=== PATIENT | male | born 1960 | race Caucasian/White ===

== ENCOUNTER → 2018-08-14 18:44 | Emergency (ER) | payer BC ==
--- OUTSIDE RECORDS SUMMARY | 2018-08-14 18:57 | XMS REPORT ---
:1960 External Reference #:[id number] Author Organization [employer] Address [address] [place] [address] [place] [address] Phone [phone] Care Team Providers Name Role Phone So Mireles MD Primary Care Physician Unavailable Payers Type Date Identification Numbers Payment Provider Subscriber Commercial Policy Number: [id number] [facility] Howie Yadav PayID: [id number] [address] [place] [address] Problems Date Description Provider Status Onset: 06/27/2010 Psoriasis So Mireles M.D. 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 [employer] ETOH Use Denies alcohol use Smoking Patient has never smoked Allergies, Adverse Reactions, Alerts Date Description Reaction Status Severity Comments 06/23/2010 No Known Drug Allergy active Medications Medication Date Status Form Strength Qnty SIG Indications Ordering Provider Lexapro 06/07 Active Tablets 20mg 2 tablets once daily Jarred Mireles Wellbutrin XL 00 Active Tablets ER 150mg 1 tablet Unknown /0000 24HR daily Flovent HFA 09/11 Hx Aerosol 44mcg/Act 1unit 2 puffs 786.2 [place] /2011 s twice daily Chemo Pratt for 10 days M.DRonen, FACP 07/24 Benzonatate 09/11 Hx Capsules 200mg 30cap take 1 786.2 [place]annah s capsule by Santa, - mouth three M.D., FACP 07/24 times a day Ranitidine HCL 08/15 Hx Tablets 150mg 60tab 1 by mouth 530.81 So s twice daily Cotton, - M.D. 09/11 Fluticasone 08/28 Hx Suspension 50mcg/Act 48uni Use 2 Sprays [place] Propionate ts In Each Santa, - Nostril M.D., FACP 07/24 Daily Needed Vivotif Violeta 06/[address] 4caps one po qod V65.49 [place]annah for 4 doses Santa, - M.D., FACP 11/13 Malarone 06/22 Hx Tablets 250-100mg 25tab one po daily V65.49 s starting 1 - Santa, - 2 days M.D., FACP 11/13 arriving and continue for 7 days after leaving destination Ciprofloxacin 06/22 Hx Tablets 250mg 14tab one po bid V65.49 [place] s for 7 days Santa, - M.D., FACP 11/13 Veramyst 08/11 Hx Suspension 27.5mcg/S 3mont 2 sprays pray h each nostril Cotton, - daily M.D. 08/28 Fluticasone 06/27 Hx Suspension 50mcg/Act 16gm 2 intranasal 696.1 So puffs qd Cotton, - M.D. 08/11 Veramyst 06/07 Hx Suspension 27.5mcg/S 1mon 2 sprays 696.1 So pray each nostril Cotton, - daily M.D. 06/27 Simvastatin 06/07 Hx Tablets 40mg 90tab Take 1 s Tablet By Cotton, - Mouth AT M.D. 11/13 Bedtime Singulair 06/07 Hx Tablets 10mg 90tab Take 1 So s Tablet By Cotton, - Mouth Once M.D. 07/24 Astelin Hx Solution 137mcg/Sp 90uni [facility] Two So / ray ts Sprays In Cotton, - The Affected M.D. 09/11 Nostril /2011 Twice A Day Clobetasol 00 Hx Gel 0.05% 30uni Apply Two So Propionate /0000 ts Times A Day Cotton, - as Needed M.D. 07/24 Medications Administered in Office Medication Date Status Form Strength Qnty SIG Indications Ordering Provider Frederick Administered Injection Sharon 40MG Chad Osman M.D. Immunizations CPT Code Status Date Vaccine Lot # [id number] Given 06/22/2011 Hepatitis B Vaccine Adult Dosage [id number] 84294 Given 06/22/2011 Influenza Virus 3Yrs & Over [id number] 44481 Given 06/22/2011 Hepatitis A Vaccine Adult Dosage [id number] 12014 Given 06/27/2010 Influenza Virus 3Yrs & Over 12810 Given 08/10/2009 Pneumonia Vaccine [id number] Given 08/10/2009 Influenza Virus 3Yrs & Over 66239 Given 07/23/2008 Influenza Virus 3Yrs & Over 14553 Given 07/23/2008 Influenza Virus 3Yrs & Over Vital Signs Date Vital Result Comment 07/25/2018 Height 69 inches 5'9" Weight 179.00 lb BP Systolic 130 mmHg BP Diastolic 82 mmHg Respiratory Rate 16 /min Body Temperature 95.4 F Pain Level 3 BMI (Body Mass Index) 26.4 kg/m2 09/11/2012 Height 69.25 inches 5'9.25" Weight 184.00 lb Heart Rate 72 /min BP Systolic Sitting 124 mmHg BP Diastolic Sitting 76 mmHg Body Temperature 98.5 F BMI (Body Mass Index) 27.0 kg/m2 08/15/2012 Height 69.25 inches 5'9.25" Weight 185.00 lb Heart Rate 70 /min BP Systolic Sitting 128 mmHg BP Diastolic Sitting 76 mmHg BMI (Body Mass Index) 27.1 kg/m2 11/13/2011 Height 69.25 inches 5'9.25" Weight 189.00 lb Heart Rate 72 /min BP Systolic Sitting 128 mmHg BP Diastolic Sitting 66 mmHg BMI (Body Mass Index) 27.7 kg/m2 06/22/2011 Height 69.25 inches 5'9.25" Weight 173.00 lb Heart Rate 68 /min BP Systolic Sitting 124 mmHg BP Diastolic Sitting 76 mmHg BMI (Body Mass Index) 25.4 kg/m2 08/11/2010 Height 69.25 inches 5'9.25" Weight 190.50 lb Heart Rate 78 /min BP Systolic 138 mmHg BP Diastolic 80 mmHg BMI (Body Mass Index) 27.9 kg/m2 06/27/2010 Weight 190.38 lb Heart Rate 60 /min BP Systolic 124 mmHg BP Diastolic 80 mmHg Results Description No Information Procedures Date CPT Code Description Status 07/25/2018 28532 Inject/Drain Joint/Bursa Small W/O US Completed 11/26/2017 Colonoscopy Completed 08/10/2009 48881 EKG Tracing & Interpretation Completed 03/13/2007 Colonoscopy Completed 02/01/2007 93499 EKG Tracing & Interpretation Completed 02/01/2007 46100 Remove Impacted Cerumen Completed 02/01/2007 16292 Remove Impacted Cerumen Completed Encounters Type Date Location Provider CPT E/M Dx Office Visit 07/25/2018 [facility]man, 44662 M18.12 9:30a Laurel Stern Office Visit 12/27/2017 [facility] [place] [address] L57.0 11:20a L82.1 L23.9 Office Visit 09/11/2012 1:00p [facility] Internal [facility] [place] Pratt M.D., 01372 786.2 - [place] FACP Office Visit 08/15/2012 2:00p [facility] So Mireles 24637 530.81 - An Stern Office Visit 11/13/2011 10:00a [facility] So Mireles 52505 780.4 - An Stern 272.4 Office Visit 06/22/2011 8:40a DO Not Use Thania Varn, 86292 V65.49 [facility]-[place] N.P. v04.81 V05.3 Office Visit 08/11/2010 8:45a DO Not Use Thania Varn, N.P. 73244 V70.0 [employer] [facility] Office Visit 06/27/2010 8:30a DO Not Use So Mireles, 83038 696.1 [facility]Maylin 473.8 V04.81 v04.81 Office Visit 04/22/2010 9:15a DO Not Use Thania Varn, 57634 789.06 [employer] N.P. Office Visit 08/10/2009 1:30p DO Not Use RadNarcisa schwartz, 04155 V70.0 [employer] M.D. 272.0 V04.81 V03.82 Office Visit 07/01/2009 3:15p DO Not Use [employer] Sav[place] Santa, 79152 381.4 M.D., FACP 465.9 Office Visit 05/10/2009 3:00p DO Not Use RadNarcisa schwartz, 91309 380.4 [employer] M.D. Office Visit 10/27/2008 2:00p DO Not Use Thania Hernandez, N.P. 69846 915.8 [employer] Office Visit 07/23/2008 8:45a DO Not Use RadNarcisa schwartz, 34215 V70.0 [employer] M.D. V04.81 Office Visit 05/04/2008 4:15p DO Not Use RadNarcisa schwartz, 31699 477.9 [employer] M.D. 381.4 Office Visit 03/03/2008 11:45a DO Not Use RadNarcisa schwartz, 08629 381.81 [employer] M.D. 477.9 Office Visit 06/27/2007 3:45p DO Not Use RadNarcisa schwartz, 56940 380.10 [employer] M.D. Office Visit 02/01/2007 1:15p DO Not Use RadNarcisa schwartz, 95679 V70.0 [employer] M.D. 272.0 Office Visit 05/23/2006 11:45a DO Not Use RadNarcisa schwartz, 63520 380.10 [employer] M.D. 477.9 Plan of Care Future Appointment(s):12/30/2018 8:00 am - Cabrera Haley MD at [facility] Nbhsflvfabt20/18/2018 - Sharon Osman M.D.M18.12 Unil primary osteoarth of first carpometacarp joint, l handNew Xrays:Thumb LeftFollow up:Follow up: As needed
[2018-08-14 20:05] LABS: ABS Basophils 0.1 10^3/ul (0-0.2); ABS Eosinophils 0.2 10^3/ul (0-0.6); ABS Lymphocytes 1.8 10^3/ul (1.0-4.8); ABS Monocytes 0.5 10^3/ul (0-0.8); ABS Nucleated RBC 0 10^3/ul; Eosinophil % 3.6 % (0-6); Hematocrit 42 % (42-52); Hemoglobin 14.6 g/dl (14.0-18.0); Lymphocyte % 27.6 % (25-47); Mean Corpuscular HGB Conc 35 g/dl (31-36); Mean Corpuscular Hemoglobin 33 pg (27-31); Mean Corpuscular Volume 95 fL (80-94); Mean Platelet Volume 8.9 fL (7.4-10.4); Nucleated Red Blood Cells % 0.1; Platelet Count 164 10^3/ul (150-450); Red Blood Count 4.46 10^6/ul (4.00-5.40); Red Cell Distribution Width 13 % (10.5-15); White Blood Count 6.7 10^3/ul (3.5-10.8)
[2018-08-14 20:25] LABS: EGFR Non-African American 86.4 (>60)
[2018-08-14 21:17] VITALS: BP 140/94
--- NOTE | 2018-08-14 22:09 | ED ---
Palpitations / Dysrhythmia - HPI Summary HPI Summary: A 57 y/o male presents to the ED c/o heart palpitations since 08/13/2018. He states that it feels like his heart is "skipping beats". He denies a Hx of SC or caffeine consumption. He denies SOB and states that he is slightly uncomfortable. He states that he has been taking antidepressants for about 10 years. - History of Current Complaint Chief Complaint: EDDysrhythmPalp Time Seen by Provider: 08/14/18 20:36 Hx Obtained From: Patient Onset/Duration: Sudden Onset, Lasting Days Timing: Constant Character: Skipped Beats - Allergy/Home Medications Allergies/Adverse Reactions: Allergies Allergy/AdvReac Type Severity Reaction Status Date / Time No Known Allergies Allergy Verified 08/14/18 18:49 PMH/Surg Hx/FS Hx/Imm Hx Endocrine/Hematology History: Denies: Hx Diabetes, Hx Thyroid Disease Cardiovascular History: Denies: Hx Hypertension, Hx Pacemaker/ICD Respiratory History: Denies: Hx Asthma, Hx Chronic Obstructive Pulmonary Disease (COPD) GI History: Denies: Hx Ulcer Sensory History: Denies: Hx Hearing Aid Psychiatric History: Denies: Hx Panic Disorder - Cancer History Cancer Type, Location and Year: PROSTATE CANCER - Hx Chemotherapy: No Hx Radiation Therapy: No - Surgical History Surgery Procedure, Year, and Place: aPPENDECTOMY AGE 16, PROSTATE CANCER 2001, 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(?) 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 Infectious Disease History: No Infectious Disease History: Denies: Hx Clostridium Difficile, Hx Hepatitis, Hx Human Immunodeficiency Virus (HIV), Hx of Known/Suspected MRSA, Hx Shingles, Hx Tuberculosis, Hx Known/ Suspected VRE, Hx Known/Suspected VRSA, History Other Infectious Disease, Traveled Outside the [place] in Last 30 Days - Family History Known Family History: Negative: Blood Disorder - Social History Alcohol Use: None Substance Use Type: Reports: None Smoking Status (MU): Never Smoked Tobacco Review of Systems Negative: Fever Positive: Palpitations Negative: Shortness Of Breath All Other Systems Reviewed And Are Negative: Yes Physical Exam - Summary Physical Exam Summary: VITAL SIGNS: Reviewed. GENERAL: Patient is a well-developed and nourished MALE who is lying comfortable in the stretcher. Patient is not in any acute respiratory distress. HEAD AND FACE: No signs of trauma. No ecchymosis, hematomas or skull depressions. No sinus tenderness. EYES: PERRLA, EOMI x 2, No injected conjunctiva, no nystagmus. EARS: Hearing grossly intact. Ear canals and tympanic membranes are within normal limits. MOUTH: Oropharynx within normal limits. NECK: Supple, trachea is midline, no adenopathy, no JVD, no carotid bruit, no c- spine tenderness, neck with full ROM. CHEST: Symmetric, no tenderness at palpation LUNGS: Clear to auscultation bilaterally. No wheezing or crackles. CVS: Regular rate and rhythm, S1 and S2 present, no murmurs or gallops appreciated. ABDOMEN: Soft, non-tender. No signs of distention. No rebound no guarding, and no masses palpated. Bowel sounds are normal. EXTREMITIES: FROM in all major joints, no edema, no cyanosis or clubbing. NEURO: Alert and oriented x 3. No acute neurological deficits. Speech is normal and follows commands. SKIN: Dry and warm Triage Information Reviewed: Yes Vital Signs On Initial Exam: Initial Vitals Temp Pulse Resp BP Pulse Ox 97.5 F 67 16 146/97 96 08/14/18 18:49 08/14/18 18:49 08/14/18 18:49 08/14/18 18:49 08/14/18 18:49 Vital Signs Reviewed: Yes Diagnostics - Vital Signs Vital Signs Temp Pulse Resp BP Pulse Ox 08/14/18 21:16 98.9 F 57 18 140/94 99 08/14/18 21:00 14 08/14/18 20:00 65 18 97 08/14/18 19:43 64 20 135/96 95 08/14/18 19:40 63 96 08/14/18 18:49 97.5 F 67 16 146/97 96 - Laboratory Lab Results: Lab Results 08/14/18 08/14/18 08/14/18 Range/Units 19:54 19:54 19:54 WBC 6.7 (3.5-10.8) 10^3/ul RBC 4.46 (4.00-5.40) 10^6/ul Hgb 14.6 (14.0-18.0) g/dl Hct 42 (42-52) % MCV 95 H (80-94) fL MCH 33 H (27-31) pg MCHC 35 (31-36) g/dl RDW 13 (10.5-15) % Plt Count 164 (150-450) 10^3/ul MPV 8.9 (7.4-10.4) fL Neut % (Auto) 59.7 (38-83) % Lymph % (Auto) 27.6 (25-47) % [place] % (Auto) 8.2 H (0-7) % Eos % (Auto) 3.6 (0-6) % Baso % (Auto) 0.9 (0-2) % Absolute Neuts (auto) 4.0 (1.5-7.7) 10^3/ul Absolute Lymphs (auto) 1.8 (1.0-4.8) 10^3/ul Absolute Monos (auto) 0.5 (0-0.8) 10^3/ul Absolute Eos (auto) 0.2 (0-0.6) 10^3/ul Absolute Basos (auto) 0.1 (0-0.2) 10^3/ul Absolute Nucleated RBC 0 10^3/ul Nucleated RBC % 0.1 Sodium 140 (135-145) mmol/L Potassium 4.4 (3.5-5.0) mmol/L Chloride 108 (101-111) mmol/L Carbon Dioxide 30 (22-32) mmol/L Anion Gap 2 (2-11) mmol/L BUN 14 (6-24) mg/dL Creatinine 0.90 (0.67-1.17) mg/dL Est GFR ( Amer) 104.5 (>60) Est GFR (Non-Af Amer) 86.4 (>60) BUN/Creatinine Ratio 15.6 (8-20) Glucose 118 H (70-100) mg/dL Lactic Acid 0.8 (0.5-2.0) mmol/L Calcium 9.0 (8.6-10.3) mg/dL Total Bilirubin 0.40 (0.2-1.0) mg/dL AST 31 (13-39) U/L ALT 25 (7-52) U/L Alkaline Phosphatase 53 (34-104) U/L Troponin I 0.00 (<0.04) ng/mL Total Protein 6.3 L (6.4-8.9) g/dL Albumin 3.9 (3.2-5.2) g/dL Globulin 2.4 (2-4) g/dL Albumin/Globulin Ratio 1.6 (1-3) Result Diagrams: 08/14/18 19:54 08/14/18 19:54 Lab Statement: Any lab studies that have been ordered have been reviewed, and results considered in the medical decision making process. - Radiology CXR Radiology Interpretation Completed By: ED Physician - No acute process. Pending official report. - EKG 20:03 Cardiac Rate: NL - 63 bpm EKG Rhythm: Sinus Rhythm Summary of EKG Findings: Normal axis. Normal interval. No ischemic changes. Course/Dx - Course Course Of Treatment: A 57 y/o male presents to the ED c/o heart palpitations since 08/13/2018. His PE, EKG and CXR were all normal. Pt most likely has PVCs/ asystole. He feels his symptoms every once in a while. Dx: palpitations. The pt will be discharged home and is agreeable to this plan. - Diagnoses Provider Diagnoses: Palpitations Discharge - Sign-Out/Discharge Documenting (check all that apply): Patient Departure - DC - Discharge Plan Condition: Stable Disposition: HOME Patient Education Materials: Heart Palpitations (ED) Referrals: Alin Carlson MD [Primary Care Provider] - (1-2 days) Additional Instructions: RETURN TO THE EMERGENCY DEPARTMENT FOR CHANGING OR WORSENING SYMPTOMS. FOLLOW UP WITH PCP IN 1-2 DAYS. - Attestation Statements Document Initiated by Scribe: Yes Documenting Scribe: Talha Spencer Provider For Whom Scribe is Documenting (Include Credential): Cristian Lester MD Scribe Attestation: Talha Hernandez, scribed for Cristian Lester MD on 08/14/18 at 2210.
== END | disposition home or self-care (01) ==
LOC: ED 18:44
DX: R00.2 Palpitations (principal)
CPT/HCPCS: 36415; 71045; 80053; 83605; 84484; 85025; 93005; 99282